=== PATIENT | female | born 1995 | race Caucasian/White ===

== ENCOUNTER 2023-07-26 04:09 | Day surgery (SDC) | payer BC ==
[2023-07-25 09:21] VITALS: BMI 23.1
[2023-07-26] MEDS ORDERED: ceFAZolin SODIUM 1 GM VIAL IVPB ONE (07:32)
[2023-07-26 08:22] VITALS: RESP 18
[2023-07-26] MEDS ORDERED: IBUPROFEN 600 MG TABLET (FP) PO PRN (08:30)
[2023-07-26] MEDS ORDERED: ELECTROLYTE-148 SOLN 1,000 ML IV SCH (08:30)
[2023-07-26] MEDS ORDERED: oxyCODONE HCL 5 MG TABLET PO PRN ×2 (08:30→12:00)
[2023-07-26] MEDS ORDERED: IBUPROFEN 800 MG/8 ML IJ IVPB PRN (08:30)
[2023-07-26] MEDS ORDERED: ONDANSETRON 4 MG/2 ML VIAL IVPUSH PRN ×2 (08:30→12:00)
[2023-07-26] MEDS ORDERED: PROPOFOL 20 ML ONE (10:16)
[2023-07-26] MEDS ORDERED: ceFAZolin SODIUM 1 GM VIAL ONE (10:16)
[2023-07-26] MEDS ORDERED: DEXAMETHASONE SOD PHOSPHATE 4 MG/1 ML VIAL ONE (10:16)
[2023-07-26] MEDS ORDERED: FENTANYL CITRATE/PF 50 MCG/ML VIAL ONE ×2 (10:16)
[2023-07-26] MEDS ORDERED: ONDANSETRON 4 MG/2 ML VIAL ONE (10:16)
[2023-07-26] MEDS ORDERED: MIDAZOLAM HCL 2 MG/2 ML SINGLE DOSE VIAL ONE ×2 (10:16→11:06)
[2023-07-26] MEDS ORDERED: TRANEXAMIC ACID 1000 MG/10 ML VIAL ONE (11:09)
[2023-07-26] MEDS ORDERED: OXYTOCIN 10 UNITS/ML VIAL ONE (11:10)
[2023-07-26] MEDS ORDERED: LACTATED RINGERS SOLUTION 1,000 ML IV SCH (12:00)
[2023-07-26 16:03] VITALS: BP 105/67; PULSE 68; TEMP 97.9
== END 2023-07-26 13:43 | disposition home or self-care (01) ==
LOC: JASU-SURG 04:09
PROVIDERS: ATTEND Obstetrics & Gynecology
PROC: 10D17ZZ Extraction of Products of Conception, Retained, Via Natural or Artificial Opening (ICD-10-PCS; principal; 2023-07-26 10:00)
DX: O02.1 Missed abortion (principal)
CPT/HCPCS: 76998-TC; 86850; 86900; 86901; 88305-TC; 94760

== ENCOUNTER 2024-08-22 16:45 | Inpatient (IN) | payer BC ==
[2024-08-22 18:34] VITALS: BMI 30.2
[2024-08-22 18:48] LABS: BASO % 0.5 % (0-2.0); EOS % 1.4 % (0-4.5); HEMATOCRIT 34.6 % (32.4-45.2); HEMOGLOBIN 11.4 GM/dL (10.7-15.3); MCHC 32.9 g/dl (32.0-36.0); MEAN CELL VOLUME 85.2 fl (80-96); MEAN PLT VOLUME 8.2 fl (7.5-11.1); MONO % 7.9 % (3.8-10.2); NEUT % 74.2 % (42.8-82.8); PLATELET COUNT 281 10^3/uL (134-434); RBC 4.06 M/mm3 (3.60-5.2); RDW 14.6 % (11.6-15.6); WHITE BLOOD COUNT 12.4 K/mm3 (4.0-10.0)
[2024-08-22] MEDS: DINOPROSTONE 10 MG VAGINAL SUPPOSITORY VG ONE (19:00)
[2024-08-22 19:05] LABS: INR 0.92 (0.83-1.09); PROTHROMBIN TIME (PATIENT) 10.6 SEC (9.7-13.0)
[2024-08-22 19:06] LABS: ACTIVATED PTT 26.1 SECONDS (25.2-36.5)
[2024-08-22 19:11] LABS: POTASSIUM 3.6 mmol/L (3.5-5.1)
[2024-08-22 19:12] LABS: BLOOD UREA NITROGEN 7.8 mg/dL (7-18); CALCIUM 9.3 mg/dL (8.5-10.1)
[2024-08-22 19:16] LABS: CREATININE 0.5 mg/dL (0.55-1.3)
[2024-08-22] MEDS: LACTATED RINGERS SOLUTION 1,000 ML/1,000 ML INFUS.BAG IV SCH (19:30)
[2024-08-22 20:05] LABS: HIV INTERPRETATION NEGATIVE (NEGATIVE)
[2024-08-22] MEDS: valACYclovir HCL 500 MG TABLET (FP) PO ONE (23:00)
[2024-08-23] MEDS ORDERED: OXYTOCIN 30 UNITS in 0.9% NS 30 UNIT/500 ML INFUS.BAG IVPB ONE (10:13)
[2024-08-23] MEDS ORDERED: AMPICILLIN SODIUM 2 GM VIAL ONE ×2 (10:17→16:14)
[2024-08-23] MEDS: AMPICILLIN - 2 GM in SODIUM CHLORIDE 100 ML IVPB ONE (10:20)
[2024-08-23] MEDS: OXYTOCIN 30 UNITS in 0.9% NS 30 UNIT/500 ML INFUS.BAG IVPB SCH (10:20)
[2024-08-23] MEDS: AMPICILLIN - 1 GM in SODIUM CHLORIDE 100 ML IVPB SCH (14:20)
[2024-08-23] MEDS ORDERED: AMPICILLIN SODIUM 1 GM VIAL ONE ×2 (16:20→23:25)
[2024-08-23] MEDS ORDERED: BUPIVACAINE HCL/PF 0.25% (2.5MG/ML) 10 ML VIAL ONE (22:48)
[2024-08-23] MEDS ORDERED: FENTANYL CITRATE/PF 50 MCG/ML VIAL ONE (22:48)
[2024-08-23] MEDS ORDERED: FENTANYL/BUPIVACAINE/NS/PF - PCEA - 50 ML DISP.SYRIN EP ONE (22:51)
[2024-08-23] MEDS: FENTANYL/BUPIVACAINE/NS/PF - PCEA - 50 ML DISP.SYRIN EP SCH (23:00)
[2024-08-23] MEDS ORDERED: NALOXONE HCL 0.4 MG/ML VIAL IVPUSH PRN (23:05)
[2024-08-24] MEDS ORDERED: AMPICILLIN SODIUM 1 GM VIAL ONE ×3 (01:49→09:47)
[2024-08-24] MEDS ORDERED: FENTANYL/BUPIVACAINE/NS/PF - PCEA - 50 ML DISP.SYRIN EP ONE ×3 (03:00→11:16)
[2024-08-24] MEDS ORDERED: BUPIVACAINE HCL/PF 0.25% (2.5MG/ML) 10 ML VIAL ONE (08:22)
[2024-08-24] MEDS ORDERED: FENTANYL CITRATE/PF 50 MCG/ML VIAL ONE (08:22)
[2024-08-24] MEDS ORDERED: GENTAMICIN SO4 80 MG/2 ML VIAL ONE (10:40)
[2024-08-24] MEDS: GENTAMICIN SO4 80 MG/2 ML VIAL IVPB ONE (10:45)
[2024-08-24] MEDS ORDERED: OXYTOCIN 20 UNITS in 0.9% NS 20 UNIT/1,000 ML INFUS.BAG IV ONE (12:04)
[2024-08-24] MEDS: METHYLERGONOVINE MALEATE 0.2 MG/1 ML AMP IM PRN (13:45)
[2024-08-24] MEDS: IBUPROFEN 600 MG TABLET (FP) PO PRN (13:50)
[2024-08-24] MEDS ORDERED: IBUPROFEN 600 MG TABLET (FP) PO ONE (13:51)
[2024-08-24] MEDS: OXYTOCIN 20 UNITS in 0.9% NS 20 UNIT/1,000 ML INFUS.BAG IV SCH (14:00)
[2024-08-24] MEDS ORDERED: BISACODYL 10 MG SUPP.RECT RC PRN (14:24)
[2024-08-24] MEDS ORDERED: BENZOCAINE 28 GM HEMORRHOIDAL OINTMENT TP PRN (14:24)
[2024-08-24] MEDS ORDERED: WITCH HAZEL 50% (TUCKS) 40 PAD/JAR PAD TP PRN (14:24)
[2024-08-24] MEDS ORDERED: BENZOCAINE 20% 57 GM BOTTLE TP PRN (14:24)
[2024-08-24 14:38] LABS: CORD BASE EXCESS -7.8 mmol/L (0-2); CORD HCO3 17.5 mmHg (20-29); CORD PCO2 35.2 mmHg (30-78); CORD pH 7.314 (7.14-7.44)
[2024-08-24 14:39] LABS: CORD BASE EXCESS -6.6 mmol/L (0-2); CORD HCO3 19.6 mmHg (20-29); CORD PCO2 41.4 mmHg (30-78); CORD pH 7.293 (7.14-7.44)
[2024-08-24] MEDS: oxyCODONE HCL 5 MG TABLET PO PRN (15:40)
[2024-08-24] MEDS ORDERED: oxyCODONE HCL 5 MG TABLET ONE (15:45)
[2024-08-25 08:43] LABS: BASO % 0.5 % (0-2.0); EOS % 0.9 % (0-4.5); HEMATOCRIT 29.9 % (32.4-45.2); HEMOGLOBIN 10.2 GM/dL (10.7-15.3); LYMPH % 9.3 % (8-40); MCH 28.9 pg (25.7-33.7); MCHC 34.2 g/dl (32.0-36.0); MEAN CELL VOLUME 84.5 fl (80-96); MEAN PLT VOLUME 8.2 fl (7.5-11.1); MONO % 7.9 % (3.8-10.2); NEUT % 81.4 % (42.8-82.8); PLATELET COUNT 240 10^3/uL (134-434); RBC 3.54 M/mm3 (3.60-5.2); RDW 14.5 % (11.6-15.6); WHITE BLOOD COUNT 19.1 K/mm3 (4.0-10.0)
[2024-08-25] MEDS: ACETAMINOPHEN 325 MG TABLET (FP) PO PRN (19:53)
[2024-08-25] MEDS ORDERED: SENNOSIDES/DOCUSATE COMBO (SENNA PLUS) TABLET (UD) PO PRN (22:00)
[2024-08-26 08:55] VITALS: BP 117/83; PULSE 94; RESP 17; TEMP 98.1
[2024-08-26 11:05] LABS: BASO % 0.8 % (0-2.0); EOS % 1.6 % (0-4.5); HEMATOCRIT 32.1 % (32.4-45.2); HEMOGLOBIN 10.8 GM/dL (10.7-15.3); LYMPH % 12.7 % (8-40); MCH 28.7 pg (25.7-33.7); MCHC 33.7 g/dl (32.0-36.0); MEAN CELL VOLUME 85.1 fl (80-96); MEAN PLT VOLUME 7.7 fl (7.5-11.1); MONO % 6.1 % (3.8-10.2); NEUT % 78.8 % (42.8-82.8); PLATELET COUNT 299 10^3/uL (134-434); RBC 3.77 M/mm3 (3.60-5.2); RDW 14.4 % (11.6-15.6); WHITE BLOOD COUNT 13.2 K/mm3 (4.0-10.0)
== END 2024-08-26 13:55 | disposition home or self-care (01) | DRG 806 ==
LOC: JLDR 16:45 → J3W 08-24 16:30
PROVIDERS: ADMIT Obstetrics & Gynecology; ATTEND Obstetrics & Gynecology
PROC: 10E0XZZ Delivery of Products of Conception, External Approach (ICD-10-PCS; principal; 2024-08-24)
PROC: 3E0P7VZ Introduction of Hormone into Female Reproductive, Via Natural or Artificial Opening (ICD-10-PCS; 2024-08-24)
PROC: 0W8NXZZ Division of Female Perineum, External Approach (ICD-10-PCS; 2024-08-24)
DX: O99.824 Streptococcus B carrier state complicating childbirth (principal); O41.03X0 Oligohydramnios, third trimester, not applicable or unspecified; Z37.0 Single live birth; Z3A.37 37 weeks gestation of pregnancy
CPT/HCPCS: 36415; 36600; 59409; 80048; 82803; 85025; 85610; 85730; 86780; 86803; 86850; 86900; 86901; 87340; 87389